=== PATIENT | female | born 1995 | race Hispanic/Latino ===

== ENCOUNTER 2021-07-08 15:46 | Emergency (ER) | payer BC, MEDICAID ==
[~2021-07-08] VITALS: Ht 154.9 cm; Wt 68.0 kg
[2021-07-08] MEDS ORDERED: PROMETHAZINE HCL 25 MG/ML 1ML AMPULE IM ONE (17:30)
[2021-07-08] MEDS ORDERED: ONDANSETRON ODT 4MG TAB SL ONE (17:30)
[2021-07-08] MEDS ORDERED: 0.9%NACL 1000ML 1,000 ML IV SCH (17:30)
[2021-07-08] MEDS ORDERED: OSELTAMIVIR PHOSPHATE 75 MG CAP PO SCH (17:30)
[2021-07-08 17:43] LABS: APPEARANCE,URINE Cloudy (CLEAR); BILIRUBIN,URINE Negative (NEGATIVE); COLOR,URINE Yellow (YELLOW); GLUCOSE, URINE (UA) Negative (NEGATIVE); KETONES,URINE 40 mg/dL (NEGATIVE); LEUKOCYTE ESTERASE ,URINE Moderate (NEGATIVE); NITRATE,URINE Negative (NEGATIVE); OCCULT BLOOD,URINE Negative (NEGATIVE); PH,URINE 6.5 (5.0-8.0); PROTEIN,URINE POS 1+ mg/dL (NEGATIVE)
[2021-07-08 17:50] LABS: BASOPHILS % (AUTO) 0.3 % (0.0-5.0); EOSINOPHILS % (AUTO) 0.1 % (0.0-8.0); HEMATOCRIT 42.1 % (36-48); LYMPHOCYTES % (AUTO) 10.2 % (21.0-51.0); MEAN CORPUSCULAR HEMOGLOBIN 29.4 pg (27.0-33.0); MEAN CORPUSCULAR HGB CONC 34.4 g/dL (32.0-36.0); MEAN CORPUSCULAR VOLUME 85.4 fL (79-99); MONOCYTES % (AUTO) 7.9 % (3.0-13.0); NEUTROPHILS % (AUTO) 81.1 % (40.0-77.0); PLATELET COUNT (AUTO) 249 K/uL (130-400); RED BLOOD CELL COUNT(AUTO) 4.93 MIL/uL (4.00-5.50); RED CELL DISTRIBUTION WIDTH 13.7 % (11.0-15.5); WHITE BLOOD COUNT (AUTO) 7.8 K/uL (4.8-10.8)
[2021-07-08 17:51] LABS: BACTERIA,URINE Moderate /HPF (None Seen); MUCUS,URINE Few LPF (None Seen); SQUAMOUS EPITHELIAL CELL,UR Moderate /HPF (0-2)
[2021-07-08 18:00] LABS: CREATININE 0.8 mg/dL (0.5-1.5); POTASSIUM 3.3 mmol/L (3.5-5.1)
[2021-07-08] MEDS ORDERED: CEFTRIAXONE 1G VIAL IVP ONE (18:00)
[2021-07-08] MEDS ORDERED: ONDANSETRON ODT 4MG TAB ONE (18:10)
[2021-07-08 18:26] LABS: ALBUMIN 3.4 g/dL (3.5-5.0); BILIRUBIN,TOTAL 0.3 mg/dL (0.2-1.0); TOTAL PROTEIN, SERUM 8.4 g/dL (6.0-8.3)
[2021-07-08] MEDS ORDERED: CEPH500B PO (19:04)
[2021-07-08] MEDS ORDERED: PHEN12S PR (19:04)
[2021-07-08 19:20] VITALS: BP 118/76
[2021-07-08] MEDS ORDERED: POTASSIUM BICARB/CIT AC 25 MEQ TABLET.EFF PO ONE (19:30)
== END 2021-07-08 19:44 | disposition home or self-care (01) ==
LOC: EDH 15:46
DX: O23.41 Unspecified infection of urinary tract in pregnancy, first trimester (principal); N39.0 Urinary tract infection, site not specified; O21.9 Vomiting of pregnancy, unspecified; E86.0 Dehydration; E87.6 Hypokalemia; Z20.822 Contact with and (suspected) exposure to COVID-19; Z3A.11 11 weeks gestation of pregnancy
CPT/HCPCS: 36415; 80053; 81001; 84702; 85025; 87088; 87635; 87804 ×2; 96361; 96372; 96374; 99284; C9803; J0696; J2550; J7030

== ENCOUNTER 2025-03-28 19:50 | Emergency (ER) | payer BC, MEDICAID ==
[~2025-03-28] VITALS: Ht 157.5 cm; Wt 63.5 kg
[~2025-03-28 19:50] MED LIST: CEPH500B PO; PHEN12S PR
--- NOTE | 2025-03-28 20:07 | ERN ---
ED Note History of Present Illness Stated Complaint: VOMITING, GBW, SUBJECTIVE FEVER Chief Complaint: Nausea,Vomiting,Diarrhea Time Seen by MD: 19:52 Time Seen by Midlevel: 19:52 Dictation: The patient is a 29-year-old female with no past medical history who presents to the emergency department with complaints of nausea nonbloody vomiting onset 4:00 a.m.. Patient reports that she took semaglutide 10 mg last night. Reports she had not taken it in a month and restarted her dose at the same doses the pre vious time. Patient reports epigastric pain. Denies any diarrhea or constipation. Reports chills Allergies: Coded Allergies: No Known Allergies (Unverified Allergy, Unknown, 07/08/21) Home Meds Active Scripts Promethazine HCl (Phenergan Supp) 12.5 Mg Supp, 25 MG ND TIDP, #20 SUPP Prov:HILARIO HYATT 07/08/21 Cephalexin Monohydrate (Keflex) 500 Mg Cap, 500 MG PO TID for 7 Days, #21 CAP Prov:HILARIO HYATT 07/08/21 Past Medical History Past Medical History: No Pertinent History Surgical History: None Family History: Negative Social History: Negative LMP: Mar 14, 2025 : 2 Para: 2 RN Note Reviewed/Agreed w/PFSH: Yes Review of System Dictation Constitutional: Negative for fever,chills, and weight loss Eyes: Negative for injury, pain,redness, and discharge ENT: Negative for injury,pain or swelling Cardiovascular: Negative for chest pain, palpitations, and edema Respiratory: Negative for shortness of breath, cough, and wheezing, Abdomen/GI: Negative for diarrhea, and constipation positive for abdominal pain, nausea, vomiting Back: Negative for injury and pain : Negative for injury, bleeding and discharge MS/Extremity: Negative for injury and deformity Skin: Negative for rash, and discoloration Neuro: Negative for headache, weakness, numbness, tingling, and seizure Psych: Negative for suicide ideation, homicidal ideation, and hallucinations Initial Vital Sign VS Vital Signs Date Time Temp Pulse Resp B/P (MAP) Pulse Ox O2 Delivery O2 Flow Rate FiO2 03/28/25 19:51 98.4 122 20 122/75 99 Room Air 03/28/25 20:27 0 21 Physical Exam Dictation Vital Signs reviewed General Appearance: Alert, oriented x 3, no acute distress, well developed, nourished. Head and Face: non-traumatic. Eyes: PERRL, pink conjunctivas, eyelid no trauma, anterior chamber with arcus s enilis. Ears: Pinnas intact and no signs of trauma or erythema ear canals clear and no discharge TM no erythema Nose: No discharge, no bleeding. Oropharynx: Mouth normal, tongue pink. pharynx clear,no erythema, tonsils no exudates, no abscesses noted, mucous membrane moist Neck: Supple, non-tender, no thyromegaly, no masses, no JVD, no bruits Breast:Deferred Chest:No tenderness, no crepitus, no paradoxical movement, no retractions Lungs:Clear, well-ventilated, symmetric, no rales, no wheezing, no rhonchi, no stridor, good breath sounds bilaterally Heart: Regular rate, regular rhythm, no murmur, no gallops Vascular: no peripheral edema, Abdomen: Soft, positive bowel sounds, nondistended, no guarding, nontender, no rebound, no masses no hepatomegaly, no splenomegaly, no Farrell's sign, no hernias. Rectal: Deferred Genital: Deferred Neurological: Normal speech, motor function intact, sensory function intact Musculoskeletal: Neck nontender, full range of motion, back nontender, full range of motion, Extremities: nontender, full range of motion Skin: Color pink, dry, no turgor, no rash, no lacerations, no abrasions, no contusions. Lymphatic: Deferred Results (Laboratory/Radiology) Laboratory/Radiology Laboratory Tests Test 03/28/25 20:13 03/28/25 21:52 White Blood Count 10.6 K/uL (4.8-10.8) Red Blood Count 5.32 MIL/uL (4.00-5.50) Hemoglobin 15.5 g/dL (12.0-16.0) Hematocrit 47.3 % (36-48) Mean Corpuscular Volume 88.9 fL (79-99) Mean Corpuscular Hemoglobin 29.1 pg (27.0-33.0) Mean Corpuscular Hemoglobin Concent 32.8 g/dL (32.0-36.0) Red Cell Distribution Width 13.3 % (11.0-15.5) Platelet Count 281 K/uL (130-400) Mean Platelet Volume 10.2 fL (7.5-10.5) Immature Granulocyte % (Auto) 0.4 % (0-1) Neutrophils (%) (Auto) 86.2 % (40.0-77.0) H Lymphocytes (%) (Auto) 10.9 % (21.0-51.0) L Monocytes (%) (Auto) 2.2 % (3.0-13.0) L Eosinophils (%) (Auto) 0.0 % (0.0-8.0) Basophils (%) (Auto) 0.3 % (0.0-5.0) Neutrophils # (Auto) 9.1 K/uL (1.8-7.7) H Lymphocytes # (Auto) 1.2 K/uL (1.0-4.8) Monocytes # (Auto) 0.2 K/uL (0.1-1.0) Eosinophils # (Auto) 0.00 K/uL (0.00-0.70) Basophils # (Auto) 0.03 K/uL (0.00-0.20) Absolute Immature Granulocyte (auto 0.04 K/uL (0-1) Nucleated Red Blood Cells 0.0 % (0.0-0.19) Sodium Level 141 mmol/L (136-145) Potassium Level 4.1 mmol/L (3.5-5.1) Chloride Level 103 mmol/L (101-111) Carbon Dioxide Level 27 mmol/L (21-32) Blood Urea Nitrogen 15 mg/dL (7-18) Creatinine 1.0 mg/dL (0.5-1.0) Glomerular Filtration Rate Calc 78 mL/min (>90) Random Glucose 102 mg/dL (70-105) Total Calcium 9.2 mg/dL (8.5-10.1) Magnesium Level 2.30 mg/dL (1.80-2.40) Total Bilirubin 0.4 mg/dL (0.2-1.0) Aspartate Amino Transf (AST/SGOT) 27 U/L (10-37) Alanine Aminotransferase (ALT/SGPT) 47 U/L (12-78) Alkaline Phosphatase 106 U/L (50-136) Troponin I High Sensitivity < 4 ng/L (4-50) L Total Protein 8.1 g/dL (6.0-8.3) Albumin 4.0 g/dL (3.5-5.0) Lipase 28 U/L (16-77) Serum Test, Qualitative NEGATIVE (NEGATIVE) Urine Color YELLOW (YELLOW) Urine Appearance CLOUDY (CLEAR) H Urine pH 6.0 (5.0-8.0) Urine Specific [place] 1.033 (1.001-1.031) Urine Protein 100 mg/dL (NEGATIVE) H Urine Glucose (UA) NEGATIVE mg/dL (NEGATIVE) Urine Ketones 5 mg/dL (NEGATIVE) H Urine Occult Blood NEGATIVE (NEGATIVE) Urine Nitrate NEGATIVE (NEGATIVE) Urine Bilirubin NEGATIVE mg/dL (NEGATIVE) Urine Urobilinogen 0.2 mg/dL (0.2-1.0) Urine Leukocyte Esterase NEGATIVE Radha/uL Urine RBC 11-25 /HPF (0-1) H Urine WBC 2-5 /HPF (0-1) H Urine Squamous Epithelial Cells FEW /HPF (0-2) Urine Other Crystals (Auto) 5 /HPF (None Seen) Urine Bacteria RARE /HPF (None Seen) Labs Reviewed?: Yes EKG: (+) rhythm (Sinus tachycardia) EKG Comment: Date:03/28/2025 Time:2021 Ventricular rate:108 ND interval:129 QRS duration:89 QT/QTc:333/447 EKG interpretation: Sinus tachycardia, borderline T-wave abnormalities Reviewed by ED Attending no STEMI ED Course ED Course Orders Procedure Category Date Status Time Cbc With Differential LAB 03/28/25 Complete 20:00 Comprehensive LAB 03/28/25 Complete Metabolic Panel 20:00 Troponin I High LAB 03/28/25 Complete Sensitivity 20:00 Urinalysis Profile LAB 03/28/25 Complete 20:00 12 Lead Ekg Tracing- EKG 03/28/25 Complete Technical 20:00 0.9%Nacl 1000ml (Ns PHA 03/28/25 Complete 1000ml) 20:00 Ondansetron 4mg Inj PHA 03/28/25 Complete (Zofran 4mg Inj) 20:00 Pantoprazole 40mg Inj PHA 03/28/25 Complete (Protonix 40mg Inj 20:00 Lipase LAB 03/28/25 Complete 20:00 Magnesium LAB 03/28/25 Complete 20:00 Testing, LAB 03/28/25 Complete Serum Hcg 20:00 Current Medications Medications (Trade) Dose Ordered Sig/Carrie Route PRN Reason Start Time Stop Time Status Last Admin Dose Admin Ondansetron HCl (zoFRAN 4MG INJ) 4 mg ONCE ONCE IVP 03/28/25 20:00 03/28/25 20:03 DC 03/28/25 20:18 Pantoprazole Sodium (PROTonix 40MG INJ) 40 mg ONCE ONCE IVP 03/28/25 20:00 03/28/25 20:03 DC 03/28/25 20:18 Sodium Chloride 1,000 ml @ 0 mls/hr ONCE ONCE IV 03/28/25 20:00 03/28/25 20:03 DC 03/28/25 20:18 Vital Signs Date Time Temp Pulse Resp B/P (MAP) Pulse Ox O2 Delivery O2 Flow Rate FiO2 03/28/25 21:39 98.4 92 20 110/68 97 Room Air* 0 21 03/28/25 20:27 98.6 107 18 106/73 98 Room Air* 0 21 03/28/25 19:51 98.4 122 20 122/75 99 Room Air Medical Decision Making MDM The patient is a 29-year-old female with no past medical history who presents to the emergency department with complaints of nausea nonbloody vomiting onset 4:00 a.m.. Patient reports that she took semaglutide 10 mg last night. Reports she had not taken it in a month and restarted her dose at the same doses the previous time. Patient reports epigastric pain. Denies any diarrhea or constipation. Reports chills CBC showed no leukocytosis, no anemia, chemistry showed no electrolyte imbalance, normal renal function, normal lipase, normal liver enzymes, negative troponin, urinalysis was negative for leukocyte esterase and nitrites. Patient reports feeling better after medication administration, tachycardia improved. Patient complaints of abdominal pain only went vomiting otherwise denies any pain at the moment. Patient has not had any episodes of vomiting since arrival to the ER. Patient has symptoms consistent with a side effect of semaglutide. Patient we will be discharged to follow up with primary doctor. Patient's agree with discharge planning Differential diagnosis: Medication side effect, gastroenteritis, gastritis, electrolyte imbalance, dehydration Need for hospitalization: Patient does not meet criteria for hospitalization. There are no social concerns with this patient. DX & DISP Disposition: Discharge Departure Impression: Primary Impression: Medication side effect Additional Impression: Nausea and vomiting Condition: Stable Scripts Pantoprazole Sodium (Protonix) 20 Mg Tablet.dr 1 TAB PO DAILY for 30 Days, #30 TAB 0 Refills Prov: MARICRUZ NARVAEZ PATIENT FINANCIAL REP 03/28/25 Ondansetron (Ondansetron Odt) 4 Mg Tab.rapdis 4 MG PO Q6HPRN PRN for nausea, #16 TAB 0 Refills Prov: MARICRUZ NARVAEZ PATIENT FINANCIAL REP 03/28/25 Additional Instructions: Your labs were unremarkable. Please follow up with your primary doctor in 1-2 days. Take your medications as prescribed. Continue oral hydration at home. If anything worsens please return to ER. FOLLOW-UP WITH PRIMARY CARE PROVIDER IN 1 TO 2 DAYS. TAKE MEDICATIONS DIRECTED HERE IN THE EMERGENCY ROOM. OKAY TO CONTINUE HOME MEDICATIONS UNLESS OTHERWISE DISCUSSED DURING YOUR VISIT IN THE EMERGENCY ROOM TODAY. RETURN TO YOUR NEAREST EMERGENCY ROOM IF SYMPTOMS WORSEN OR IF THERE IS NO IMPROVEMENT. CALL 911 IF YOU NEED IMMEDIATE ASSISTANCE. TAKE TYLENOL MMPX-IHS-ASCULIE NEEDED AND IF NO CONTRAINDICATIONS ARE PRESENT. INCREASE ORAL HYDRATION. A WOUND CULTURE OR URINE CULTURE WAS ORDERED HERE IN THE EMERGENCY ROOM DEPARTMENT PLEASE FOLLOW-UP WITH PRIMARY CARE PROVIDER AND ADVISE THEM TO GET REPEAT PORTS FROM OUR FACILITY. IF YOU HAD ANY ROLAN WRAP/SPLINTS THAT WERE APPLIED HERE, PL EASE DO NOT REMOVE THEM UNTIL YOU SEE YOUR PRIMARY CARE OR SPECIALTY. Referrals: ERICK BLEVINS (PCP) Time of Disposition: 22:26 I have reviewed the case, and I agree with, Diagnosis and Plan MARICRUZ NARVAEZ MARIO Mar 28, 2025 20:07
[2025-03-28] MEDS: 0.9%NACL 1000ML 1,000 ML IV ONE (20:18)
[2025-03-28 20:21] LABS: IMMATURE GRANULOCYTE ABSOLUTE 0.04 K/uL (0-1); NUCLEATED RED BLOOD CELLS 0.0 % (0.0-0.19); PLATELET COUNT (AUTO) 281 K/uL (130-400); RED BLOOD CELL COUNT(AUTO) 5.32 MIL/uL (4.00-5.50); RED CELL DISTRIBUTION WIDTH 13.3 % (11.0-15.5); WHITE BLOOD COUNT (AUTO) 10.6 K/uL (4.8-10.8)
--- NOTE | 2025-03-28 20:26 | EKG ---
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
[2025-03-28 20:40] LABS: ASPARTATE AMINOTRANSFERASE 27.0 U/L (10-37); CREATININE 1.0 mg/dL (0.5-1.0); GLOMERULAR FILTR. RATE CALC 78.0 mL/min (>90); GLUCOSE,RANDOM 102.0 mg/dL (70-105); SODIUM SERUM 141.0 mmol/L (136-145); TOTAL PROTEIN, SERUM 8.1 g/dL (6.0-8.3); UREA NITROGEN, BLOOD 15.0 mg/dL (7-18)
[2025-03-28 22:02] LABS: APPEARANCE,URINE CLOUDY (CLEAR); GLUCOSE, URINE (UA) NEGATIVE (NEGATIVE); LEUKOCYTE ESTERASE ,URINE NEGATIVE Leu/uL (NEGATIVE); NITRATE,URINE NEGATIVE (NEGATIVE); OCCULT BLOOD,URINE NEGATIVE (NEGATIVE)
[2025-03-28 22:03] LABS: ADD UA MICROSCOPIC YES
[2025-03-28 22:08] LABS: SQUAMOUS EPITHELIAL CELL,UR FEW /HPF (0-2); UNCLASSIFIED CRYSTAL 5 /HPF (None Seen)
[2025-03-28] MEDS ORDERED: ONDA-243 PO (22:27)
[2025-03-28] MEDS ORDERED: PANT20TA PO (22:27)
[2025-03-28 22:43] VITALS: BP 108/74; PULSE 90; RESP 18; TEMP 98.6; O2SAT 99
== END 2025-03-28 22:46 | disposition home or self-care (01) ==
LOC: EDH 19:50
DX: R11.2 Nausea with vomiting, unspecified (principal); T50.995A Adverse effect of other drugs, medicaments and biological substances, initial encounter; Y92.89 Other specified places as the place of occurrence of the external cause; R10.13 Epigastric pain
CPT/HCPCS: 99284; 96374; 96375; 83735; 84484; 80053; 84703; 83690; 85025; 81001; 36415; 93005; J7030; J2405; J2470